=== PATIENT | male | born 1930 | race Caucasian/White ===

== ENCOUNTER → 2016-11-25 | Outpatient (CLI) | payer MEDICARE, OTHER | LOC: PCVCIMAG 13:08 | PROVIDERS: ATTEND Internal Medicine Cardiovascular Disease | DX: I48.91 Unspecified atrial fibrillation (principal); I25.10 Atherosclerotic heart disease of native coronary artery without angina pectoris; E78.00 Pure hypercholesterolemia, unspecified; E11.9 Type 2 diabetes mellitus without complications; I10 Essential (primary) hypertension | CPT/HCPCS: 93005; 93306; G0463 ==

== ENCOUNTER → 2017-06-15 | Outpatient (CLI) | payer MEDICARE, OTHER | END | disposition home or self-care (01) | LOC: PCVCCLINIC 13:55 | PROVIDERS: ATTEND Internal Medicine Cardiovascular Disease | DX: Z51.81 Encounter for therapeutic drug level monitoring (principal); I25.10 Atherosclerotic heart disease of native coronary artery without angina pectoris; I48.0 Paroxysmal atrial fibrillation; I10 Essential (primary) hypertension; E78.00 Pure hypercholesterolemia, unspecified; E11.9 Type 2 diabetes mellitus without complications; I25.2 Old myocardial infarction; I77.89 Other specified disorders of arteries and arterioles; Z88.0 Allergy status to penicillin; Z79.82 Long term (current) use of aspirin; Z79.01 Long term (current) use of anticoagulants; Z87.891 Personal history of nicotine dependence | CPT/HCPCS: 85610; 93005; G0463 ==

== ENCOUNTER → 2017-12-28 | Outpatient (CLI) | payer MEDICARE, OTHER | END | disposition home or self-care (01) | LOC: PCVCCLINIC 13:46 | DX: I25.10 Atherosclerotic heart disease of native coronary artery without angina pectoris (principal); I48.0 Paroxysmal atrial fibrillation; I10 Essential (primary) hypertension; R60.9 Edema, unspecified; Z88.0 Allergy status to penicillin; Z79.82 Long term (current) use of aspirin; Z79.899 Other long term (current) drug therapy; Z79.01 Long term (current) use of anticoagulants; Z87.891 Personal history of nicotine dependence | CPT/HCPCS: 93005; G0463 ==

== ENCOUNTER → 2018-07-13 | Outpatient (CLI) | payer MEDICARE, OTHER ==
[~2018-07-13] MED LIST: REGADENOSON 0.4 MG/5 ML DISP.SYRIN. IV ONE
--- NOTE | 2018-07-13 14:22 | PCVCIMAG ---
APPROVED REPORT Imaging Protocol: Rest Tc-99m/Stress Tc-99m 1 day Study performed: 07/13/2018 10:13:04 Indication: CAD , P-Atrial Fibrillation Patient Location: Out-Patient Stress Nurse: Alana Gay RN, Ophelia Jordan RN CT Tech:Sayda Mock [facility] Ht: 6 ft 1 in Wt: 230 lbs BSA: 2.28 m2 HR: 56 bpm BP: 176/81 mmHg BMI: 30.34 Rhythm: Sinus Bradycardia Medical History Medical History: HTN, Hyperlipidemia, Diabetes, Former Smoker, Atrial Fibrillation, Age, CAD Medications: ASA, Atorvastatin, Diltiazem, Glimiperide, Lisinopril, Sotalol, Warfarin Allergies: PCN Previous Cardiac Procedures: PCI Pretest Chest Pain Characteristics: No chest pain Exercise History: Sedentary Physical Disabilities: Legs Resting Data Rest SPECT myocardial perfusion imaging was performed in supine position 45 minutes following the intravenous injection of 10.1 mCi of Tc-99m Sestamibi. Time of rest injection: 0940 Date: 07/13/2018 Administration Route: IV Administration Site: Right AC Pharmacologic Stress Pharmacologic stress test was performed by injecting Regadenoson 0.4 mg IV push over 10-15 seconds immediately followed by the intravenous injection of 32.6 mCi of Tc-99m Sestamibi. Time of stress injection: 1045 Date: 07/13/2018 Administration Route: IV Administration Site: Right AC Gated Stress SPECT was performed 45 minutes after stress injection. The images were gated to evaluate regional wall motion and calculate left ventricular ejection fraction. Comments PRIOR NUCLEAR STRESS TEST 03/2016: No evidence of stress induced ischemia or prior myocardial infarction. Normal left ventricular size and function with no regional wall motion abnormalities. Stress Test Details Stress Test: Pharmacologic stress testing performed using 0.4 mg of regadenoson per 5 mL given IV over 10 seconds. Reason for pharmacologic stress test: physical limitation. HRMax Heart Rate (APMHR): 134 bpm Resting HR: 56 bpmTarget HR (85% APMHR): 113 bpm Max HR Achieved: 78 bpm % of APMHR: 58 Recovery HR: 68 bpm BP Resting BP: 176/81 mmHg Recovery BP: 154/68 mmHg ECG Resting ECG: Sinus Bradycardia Stress ECG: Sinus Rhythm ST Change: Non-ischemic Recovery ECG: Sinus Rhythm Clinical Reason for Termination: Completed protocol Stress Symptoms: Headache Exercise duration: 0 min 55 sec Symptoms resolved with caffeine. Study Quality Study: Good Study Data Post stress, the left ventricular ejection was 71%.. SSS: 7 SRS: 7 SDS: 3 TID = 1.02. Perfusion There is a medium area of moderately reduced uptake in the entire segment of the inferoapical wall which is seen on the stress images and improves on the resting images. This area thickens and moves normally and is most consistent with ischemia. Wall Motion Normal left ventricular wall motion. Nuclear Conclusion ECG Findings: negative for ischemia Clinical Findings: non-diagnostic Nuclear Findings: positive for ischemia Exercise Capacity: not assessed Left Ventricular Function: normal This study reveals a reversible defect in the inferoapical wall, consistent with ischemia. There is normal global and segmental LV systolic function.
== END | disposition home or self-care (01) ==
LOC: PCVCIMAG 09:56
PROVIDERS: ATTEND Internal Medicine Cardiovascular Disease
DX: I25.10 Atherosclerotic heart disease of native coronary artery without angina pectoris (principal); I48.0 Paroxysmal atrial fibrillation; I21.9 Acute myocardial infarction, unspecified; I10 Essential (primary) hypertension; R60.9 Edema, unspecified; Z79.82 Long term (current) use of aspirin; Z79.899 Other long term (current) drug therapy; Z88.0 Allergy status to penicillin
CPT/HCPCS: 78452; 93017; A9500; G0463; J2785

== ENCOUNTER → 2018-08-19 | Outpatient (CLI) | payer MEDICARE, OTHER | END | disposition home or self-care (01) | LOC: PCVCCLINIC 11:36 | PROVIDERS: ATTEND Internal Medicine Cardiovascular Disease | DX: I25.10 Atherosclerotic heart disease of native coronary artery without angina pectoris (principal); I10 Essential (primary) hypertension; I48.0 Paroxysmal atrial fibrillation; R60.9 Edema, unspecified; Z88.8 Allergy status to other drugs, medicaments and biological substances; Z88.0 Allergy status to penicillin; Z79.82 Long term (current) use of aspirin; Z79.899 Other long term (current) drug therapy; Z87.891 Personal history of nicotine dependence | CPT/HCPCS: 36415; 93005; G0463 ==

== ENCOUNTER → 2019-02-28 | Outpatient (CLI) | payer MEDICARE, OTHER | END | disposition home or self-care (01) | LOC: PCVCCLINIC 14:47 | PROVIDERS: ATTEND Internal Medicine Cardiovascular Disease | DX: I25.10 Atherosclerotic heart disease of native coronary artery without angina pectoris (principal); I48.91 Unspecified atrial fibrillation; E78.00 Pure hypercholesterolemia, unspecified; I12.9 Hypertensive chronic kidney disease with stage 1 through stage 4 chronic kidney disease, or unspecified chronic kidney disease; N18.9 Chronic kidney disease, unspecified; E11.9 Type 2 diabetes mellitus without complications; Z79.82 Long term (current) use of aspirin; Z87.891 Personal history of nicotine dependence | CPT/HCPCS: 93005; G0463 ==

== ENCOUNTER → 2019-09-13 | Outpatient (CLI) | payer MEDICARE, OTHER ==
--- NOTE | 2019-09-13 14:37 | PCVCIMAG ---
APPROVED REPORT Risk Factors Hypertension: Hyperlipidemia Diabetes, Doppler Spectral Velocity Analysis PSV / EDVPSV / EDV ECA (R) 65 / 6 cm/sECA (L) 79 / 9 cm/s dICA (R) 70 / 21 cm/sdICA (L) 59 / 22 cm/s [place]ha (R) 59 / 16 cm/smICA (L) 48 / 17 cm/s pICA (R) 69 / 14 cm/spICA (L) 59 / 12 cm/s Bulb (R) 43 / 8 cm/sBulb (L) 64 / 12 cm/s dCCA (R) 86 / 14 cm/sdCCA (L) 68 / 13 cm/s mCCA (R) 92 / 16 cm/smCCA (L) 90 / 14 cm/s Vert (R) 42 / 9 cm/sVert (L) 40 / 10 cm/s ICA/CCA 0.76ICA/CCA 0.71 Basic Measurements Blood Pressure: Pulses: Right Left RightLeft Brachial(Sitting) 142/[id number]/80mmHgTemporal Real Time B-Mode Imaging Vert. (R)AntegradeVert. (L)Antegrade Findings The right carotid bulb has mild plaque. The right proximal internal carotid artery shows no significant stenosis. The right common carotid artery shows no significant stenosis. The right external carotid artery shows no significant stenosis. The left carotid bulb has mild plaque. The left proximal internal carotid artery shows no significant stenosis. The left common carotid artery shows no significant stenosis. The left external carotid artery shows no significant stenosis. Conclusion 1. Mild bilateral plaquing without significant stenosis. 2. Antegrade vertebral flow 3. Incidental findin.3 x 2.3 cm right thyroid nodule
--- NOTE | 2019-09-13 15:34 | PCVCIMAG ---
APPROVED REPORT Study performed: 09/13/2019 14:51:04 EXAM: Comprehensive 2D, Doppler, and color-flow Echocardiogram Patient Location: Echo lab Room #: [id number]: routine BSA: 2.26 HR: 60 bpmBP: 150/80 mmHg Rhythm: NSR Other Information Study Quality: Adequate Risk Factors: Cardiac Risk Factors: HTN, Hyperlipidemia, DM Indications Atrial Fibrillation CAD Old Inferior [place] 2D Dimensions IVSd: 8.52 (7-11mm)LVOT Diam: 21.62 (18-24mm) LVDd: 53.08 mm PWd: 8.86 (7-11mm)Ascending Ao: 38.28 (22-36mm) LVDs: 34.84 (25-40mm) Left Atrium: 41.02 (27-40mm) Aortic Root: 31.44 mm LV Single Plane 4CH: 52.90 % LV Single Plane 2CH: 57.21 % Biplane EF: 57.4 % Volumes Left Atrial Volume (Systole) Single Plane 4CH: 87.00 mLSingle Plane 2CH: 98.52 mL Biplane LA Volume: 94.00 mLLA ESV Index: 41.00 mL/m2 Aortic Valve AoV Peak Bandar.: 1.59 m/s AO Peak Gr.: 10.91 mmHgLVOT Max P.12 mmHg AO Mean Gr.: 5.43 mmHgLVOT Mean P.94 mmHg AO V2 Mean: 1.07 m/sLVOT Max V: 1.06 m/s AO V2 VTI: 37.56 cmLVOT Mean V: 0.63 m/s [place] (VTI): 2.31 [id number] VTI: 23.68 cm [place] Vmax: 2.44 cm2 SV (LVOT): 86.91 mL Mitral Valve E/A Ratio: 1.2 MV Decel. Time: 177.09 ms MV E Max Bandar.: 0.94 m/s MV A Bandar.: 0.81 m/s IVRT: 83.04 ms Pulmonary Vein P Vein S: 0.71 m/sP Vein A: 0.23 m/s P Vein D: 0.54 m/sP Vein A Dur.: 100.3 msec P Vein S/D Ratio: 1.31 Tricuspid Valve TR Peak Bandar.: 2.75 m/s TR Peak Gr.: 30.30 mmHg TV Vmax: 0.66 m/sPA Pressure: 37.00 mmHg Left Ventricle The left ventricle is normal size. There is normal LV segmental wall motion. There is normal left ventricular wall thickness. Left ventricular systolic function is normal. The left ventricular ejection fraction is within the normal range. LVEF is 55-60%. Right Ventricle The right ventricle is normal size. The right ventricular systolic function is normal. Atria Left atrium is mildly dilated. The right atrium size is normal. Aortic Valve The Aortic valve is sclerotic. No aortic regurgitation is present. There is no aortic valvular stenosis. Mitral Valve The mitral valve is normal in structure. There is no mitral valve regurgitation noted. No evidence of mitral valve stenosis. Tricuspid Valve The tricuspid valve is normal in structure. Mild tricuspid regurgitation with a PA pressure of 37 mmHg. Pulmonic Valve The pulmonary valve is normal in structure. Mild pulmonic regurgitation. Great Vessels The aortic root is normal in size. The ascending aorta is borderline dilated. Aortic arch is normal in caliber. IVC is normal in size and collapses >50% with inspiration. Pericardium There is no pericardial effusion. There is no pleural effusion. <Conclusion> The left ventricle is normal size. There is normal left ventricular wall thickness. Left ventricular systolic function is normal. The right ventricle is normal size. Left atrium is mildly dilated. The Aortic valve is sclerotic. There is no mitral valve regurgitation noted. Mild tricuspid regurgitation with a PA pressure of 37 mmHg.
--- NOTE | 2019-09-13 16:01 | PCVCIMAG ---
EXAM: ULTRASOUND OF THE THYROID INDICATION: Thyroid nodules. FINDINGS: The right thyroid lobe measures 2.7 x 3.3 x 4.6 cm. The left thyroid lobe measures 1.8 x 2.0 x 4.2 cm. 2.3 x 3.3 x 3.4 cm indeterminate mass mid/lower right thyroid lobe is fairly well-circumscribed. 0.4 x 0.6 x 0.6 cm hypoechoic solid lesion superior left thyroid lobe. No prior studies available for comparison. IMPRESSION: Indeterminate 3.4 cm solid mass mid/lower right thyroid lobe. Further evaluation by ENT may be helpful. LOC:[id number]
== END | disposition home or self-care (01) ==
LOC: PCVCIMAG 13:53
PROVIDERS: ATTEND Internal Medicine Cardiovascular Disease
DX: I08.8 Other rheumatic multiple valve diseases (principal); I65.23 Occlusion and stenosis of bilateral carotid arteries; E04.2 Nontoxic multinodular goiter; I48.91 Unspecified atrial fibrillation; I25.10 Atherosclerotic heart disease of native coronary artery without angina pectoris; I25.2 Old myocardial infarction; E78.00 Pure hypercholesterolemia, unspecified; I12.9 Hypertensive chronic kidney disease with stage 1 through stage 4 chronic kidney disease, or unspecified chronic kidney disease; E11.22 Type 2 diabetes mellitus with diabetic chronic kidney disease; N18.9 Chronic kidney disease, unspecified; Z88.8 Allergy status to other drugs, medicaments and biological substances; Z87.891 Personal history of nicotine dependence
CPT/HCPCS: 76536; 93005; 93306; 93880; G0463